=== PATIENT | female | born 1990 | race Caucasian/White ===

== ENCOUNTER → 2017-09-15 | Outpatient (CLI) | payer BC ==
--- NOTE | 2017-09-15 15:26 | CT ---
EXAMINATION TYPE: CT abdomen pelvis wo con DATE OF EXAM: 09/15/2017 HISTORY: Left flank pain x1 month per patient. Right upper quadrant and thoracic back pain per order. CT DLP: 303.5 mGycm. Automated Exposure Control for Dose Reduction was Utilized. TECHNIQUE: CT scan of the abdomen and pelvis is performed without oral or IV contrast. COMPARISON: NONE FINDINGS: Within the limitations of a non-contrast study, the following observations are made. LUNG BASES: No significant abnormality is appreciated. LIVER/GB: Somewhat contracted gallbladder is present. PANCREAS: No significant abnormality is seen. SPLEEN: No significant abnormality is seen. ADRENALS: No significant abnormality is seen. KIDNEYS: No. No stones or hydronephrosis is present bilaterally. BOWEL: Appendix is felt within normal limits from base of cecum in the right lower quadrant. GENITAL ORGANS: Metallic IUD is seen in anteverted uterus. Suspected tiny amount of free fluid pelvic cul-de-sac axial image 113, nonspecific. No definitive adnexal masses are seen. Both ovaries are wit hin normal limits in size near axial image 113 LYMPH NODES: No greater than 1cm abdominal or pelvic lymph nodes are appreciated. OSSEOUS STRUCTURES: No significant abnormality is seen. OTHER: No significant additional abnormality is seen. IMPRESSION: No renal stones or hydronephrosis is seen bilaterally. No suspicious acute finding on non contrast CT is identified to account for patient's symptoms.
== END ==
LOC: RADCTMAIN 14:56
PROVIDERS: ATTEND Family Medicine
DX: R10.12 Left upper quadrant pain (principal); M54.6 Pain in thoracic spine
CPT/HCPCS: 74176

== ENCOUNTER → 2018-12-10 | Outpatient (CLI) | payer BC ==
--- NOTE | 2018-12-10 09:48 | XR ---
EXAMINATION TYPE: XR finger LT DATE OF EXAM: 12/10/2018 CLINICAL HISTORY: pain First digit. TECHNIQUE: 3 views of the first digit are submitted. COMPARISON: None FINDINGS: No displaced fracture is seen with certainty. Joint spaces are well-preserved. Correlate for soft tissue injury. IMPRESSION: No acute displaced fracture or dislocation.
== END | disposition home or self-care (01) ==
LOC: RADXRMAIN 08:37
PROVIDERS: ATTEND Family Medicine
DX: S63.105D Unspecified dislocation of left thumb, subsequent encounter (principal)

== ENCOUNTER → 2020-06-23 | Outpatient (CLI) | payer BC ==
[2020-06-23 16:11] LABS: % Iron Saturation 16.67 (12.00-45.00)
[2020-06-23 16:20] LABS: Ferritin 47.7 ng/mL (10.0-291.0)
[2020-06-23 16:31] LABS: Hepatitis B Surface Antigen Non-Reactive (Non-Reactive); Hepatitis C IgG Antibody Non-Reactive (Non-Reactive)
== END | disposition home or self-care (01) ==
LOC: LABWHC1 10:01
PROVIDERS: ATTEND Family Medicine
DX: R79.89 Other specified abnormal findings of blood chemistry (principal)
CPT/HCPCS: 36415; 82728; 83540; 83550; 86803; 87340

== ENCOUNTER → 2020-09-22 | Outpatient (CLI) | payer BC ==
--- NOTE | 2020-09-22 08:07 | USB ---
EXAMINATION TYPE: US breast limited RT DATE OF EXAM: 09/22/2020 COMPARISON: Mammogram same date CLINICAL HISTORY: N63 Breast Lump. Findings: The right breast was scanned at 3:00 and in the retroareolar region. Right axillary tail was also sca nned with ultrasound. There is no sonographic correlate for the right breast palpable abnormality. Clinical follow-up is re commended. IMPRESSION: No sonographic correlate for right breast palpable abnormality. Clinical follow-up is recommended. Mammograms beginning at age 40 are recommended unless clinical factors indicate earlier imaging is ne cessary. BI-RADS 1, negative.
--- NOTE | 2020-09-22 10:16 | MM ---
Reason for exam: clinical finding. History: Patient is nulliparous. Took hormonal contraceptives beginning at age 15. Physical Findings: Nurse Summary: 2cm nodule in the right breast at 2 o'clock (nurse sylvia). MG 3D Diag Mammo W/Cad OLIVER Bilateral CC and MLO view(s) were taken. There are scattered fibroglandular densities. No mammographic correlate for right palpable, recommend ultrasound. These results were verbally communicated with the patient and result sheet given to the patient on 09/22/20. ASSESSMENT: Incomplete: need additional imaging evaluation, BI-RAD 0 RECOMMENDATION: Ultrasound of the right breast. WOODY
== END | disposition home or self-care (01) ==
LOC: RADMAMWWP 07:05
PROVIDERS: ATTEND Obstetrics & Gynecology
DX: N64.89 Other specified disorders of breast (principal); N63.10 Unspecified lump in the right breast, unspecified quadrant
CPT/HCPCS: 77062; 77066

== ENCOUNTER → 2020-12-01 | Outpatient (CLI) | payer BC ==
[2020-12-01 15:19] VITALS: BP 123/81; PULSE 71; RESP 16; TEMP 98.5
--- NOTE | 2020-12-01 16:05 | P.GSHP ---
History of Present Illness H&P Date: 12/01/20 Chief Complaint: mass right breast Sujey is a 30-year-old white female seen in consultation for Dr. Stubbs regarding a mass in her right breast. She noted this approximately 4 months ago. It has not changed in size. It is tender to palpation. It does not change with her menstrual cycles. [place] [address] which did not reveal any mammographic correlate. She then underwent an ultrasound of the right breast which likewise did not reveal any sonographic correlate. She has never had anything like this in the past. She has not had any breast biopsies. She has not had any recent trauma or infection of the breast. She has not had any surgery in the breast. Has not had any pregnancies. Caffeine:less than 1 cup/day nicotine: none chocolate: three days/week Family history: paternal grandfather:lung cancer no smoker Hormonal history: Menarche: 11 G0 regular periods BCP: copper IUD; 5 years BCP: used from 15 to 21 Surgical history: lasix eye surgery Medical history: Negative Social history: Nicotine: Negative Alcohol: Occasional Drugs: Negative - Constitutional Constitutional: Denies chills, Denies fever - EENT Eyes: denies blurred vision, denies pain Ears: deny: decreased hearing, tinnitus Ears, nose, mouth and throat: Denies headache, Denies sore throat - Breasts Breasts: bilateral: as per HPI - Cardiovascular Cardiovascular: Denies chest pain, Denies shortness of breath - Respiratory Respiratory: Denies cough, Denies 7 - Gastrointestinal Gastrointestinal: Denies abdominal pain, Denies diarrhea, Denies nausea, Denies vomiting - Genitourinary (Female) Genitourinary: Denies dysuria, Denies hematuria - Menstruation Menstruation: Reports period normal - Musculoskeletal Musculoskeletal: Denies myalgias - Integumentary Integumentary: Denies pruritus, Denies rash - Neurological Neurological: Denies numbness, Denies weakness - Psychiatric Psychiatric: Denies anxiety, Denies depression - Endocrine Endocrine: Denies fatigue, Denies weight change - Hematologic/Lymphatic Comment: none - Allergic/Immunologic Allergic/Immunologic: Reports seasonal allergies Past Medical History History of Any Multi-Drug Resistant Organisms: None Reported Smoking Status: Never smoker Medications and Allergies Home Medications Medication Instructions Recorded Confirmed Type Multivit with Calcium,Iron,Min 1 each PO DAILY 12/01/20 12/01/20 History [Women's Multivitamin] Allergies Allergy/AdvReac Type Severity Reaction Status Date / Time Sulfa (Sulfonamide AdvReac Rash/Hives Unverified 12/01/20 15:19 Antibiotics) Surgical - Exam Vital Signs Temp Pulse Resp BP Pulse Ox 98.5 F 71 16 123/81 97 12/01/20 15:13 12/01/20 15:13 12/01/20 15:13 12/01/20 15:13 12/01/20 15:13 BMI 26.2 - General no distress - Eyes normal ocular movement - ENT no hearing loss, no congestion - Neck no masses, trachea midline - Respiratory normal expansion, normal respiratory effort - Cardiovascular Rhythm: regular Heart Sounds: normal: S1, S2 - Abdomen Abdomen: soft, non tender, no guarding, no rigid, no rebound - Integumentary normal turgor - Neurologic no disoriented, no combative - Musculoskeletal normal gait, normal posture - Psychiatric oriented to time, oriented to person, oriented to place, speech is normal, memory intact Breast Exam: BRA: 38D inspection: Bilateral grade 1 ptosis Palpation: Right breast: Multiple positional exam fiber cystic changes, the 3 o'clock position there is approximately a 1 x 1 cm area of nodularity Right axilla: No adenopathy of concern Left breast: Positional exam fibrocystic changes no dominant masses or nodules of concern Left axilla: No adenopathy of concern Results Mammogram and ultrasound results reviewed Assessment and Plan Assessment: Impression: 1. Dense fibroglandular breast tissue 2. Small approximately 1 x 1 cm area of nodularity 3 o'clock position medial aspect of right breast Plan: 1. Core biopsy of palpable area right breast 2. Ultrasound follow-up regardless of results of core biopsy as this area is palpable Cc: Dr. Stubbs
== END ==
LOC: WWCWWP 14:51
PROVIDERS: ATTEND Surgery
DX: N63.10 Unspecified lump in the right breast, unspecified quadrant (principal); Z88.2 Allergy status to sulfonamides

== ENCOUNTER → 2020-12-21 | Outpatient (CLI) | payer BC ==
[2020-12-21 10:22] VITALS: BP 127/87; PULSE 91; RESP 16; TEMP 98.5
--- NOTE | 2020-12-21 10:27 | P.PCN ---
Date of Procedure: 12/21/20 Preoperative Diagnosis: Palpable mass right breast Postoperative Diagnosis: Same Procedure(s) Performed: Core biopsy right breast Anesthesia: local Surgeon: Rachelle Cortes Pathology: other (Right breast tissue) Condition: stable Disposition: same day Indications for Procedure: Palpable mass right breast Operative Findings: Fibrofatty breast tissue Description of Procedure: This is a 30-year-old white female who was noted to have an area of increased nodularity in the upper inner aspect of the right breast. Mammogram and ultrasound were negative. Secondary to the persistent nodularity core biopsy was recommended. The area of concern was prepped using Betadine. 1% lidocaine was used to anesthetize the area of concern. An 18-gauge Bard core biopsy needle was utilized to obtain 3 specimens. The skin was opened using a 15 blade. The needle was injected in 3 specimens were obtained. The patient tolerated the procedure in stable condition. The specimen was sent to pathology.
== END ==
LOC: WWCWWP 10:01
PROVIDERS: ATTEND Surgery
DX: N63.10 Unspecified lump in the right breast, unspecified quadrant (principal); Z88.2 Allergy status to sulfonamides
CPT/HCPCS: 88305

== ENCOUNTER → 2020-12-29 | Outpatient (CLI) | payer BC ==
[2020-12-29 12:21] VITALS: BP 131/87; PULSE 84; RESP 16; TEMP 98.4
--- NOTE | 2020-12-29 12:35 | P.PN ---
Progress Note - Text Progress Note Date: 12/29/20 Sujey is status post a right breast core biopsy on . Pathology revealed benign breast fibroadipose tissue with benign rare ductal structure and benign fragment of skin. The patient tolerated procedure without difficulty. The area of palpable nodularity is persistent but it is believed that this has been sampled and that radiographically did not reveal any lesions of concern. Examination: Right breast mild ecchymosis at biopsy site no evidence of infection Plan: Repeat right breast ultrasound in 6 months with physician exam at that time Patient will follow up sooner if any questions or concerns CC: Dr. Stubbs, Dr. Wallace
== END ==
LOC: WWCWWP 11:56
PROVIDERS: ATTEND Surgery
DX: N63.10 Unspecified lump in the right breast, unspecified quadrant (principal); Z88.2 Allergy status to sulfonamides

== ENCOUNTER → 2021-06-21 | Outpatient (CLI) | payer BC ==
--- NOTE | 2021-06-21 10:00 | USB ---
Reason for exam: clinical finding. History: Patient is nulliparous. Family history of breast cancer in paternal grandmother at age 40 and breast cancer in paternal aunt at age 30. Took hormonal contraceptives beginning at age 15. Indicated problem(s): pain in the right breast. Physical Findings: A clinical breast exam by your physician is recommended on an annual basis and results should be correlated with mammographic findings. US Breast RT Right complete breast ultrasound includes all four quadrants, the retroareolar region and axilla. Finding demonstrates a 0.9 x 1.0 x 0.6cm lymph node at the axilla. No cystic or solid lesion seen in breast. These results were verbally communicated with the patient and result sheet given to the patient on 06/21/21. ASSESSMENT: Benign, BI-RAD 2 RECOMMENDATION: Routine screening mammogram of both breasts at age 39. Manage patient on a clinical basis.
== END | disposition home or self-care (01) ==
LOC: RADUSWWP 08:20
PROVIDERS: ATTEND Surgery
DX: R92.8 Other abnormal and inconclusive findings on diagnostic imaging of breast (principal); Z80.3 Family history of malignant neoplasm of breast

== ENCOUNTER → 2021-06-28 | Outpatient (CLI) | payer BC ==
[2021-06-28 08:43] VITALS: BP 129/85; PULSE 76; RESP 17; TEMP 97.7
--- NOTE | 2021-06-28 09:34 | P.PN ---
Subjective Progress Note Date: 06/28/21 Principal diagnosis: fibrocystic breast changes Sujey is a 31-year-old white female seen in consultation for Dr. Stubbs regarding a mass in her right breast last year. She noted this approximately 4 months prior. It had not changed in size. It was tender to palpation. It did not change with her menstrual cycles. [place] [address] which did not reveal any mammographic correlate. She then underwent an ultrasound of the right breast which likewise did not reveal any sonographic correlate. She had never had anything like this in the past. An ultrasound core biopsy which was benign. She has not had any recent trauma or infection of the breast. She has not had any surgery in the breast. [place] [address] which was benign BIRADS 2. She continues to have some fullness in her right breast. Caffeine:less than 1 cup/day nicotine: none chocolate: stopped 3 weeks ago Family history: paternal grandfather:lung cancer no smoker Hormonal history: Menarche: 11 G0 regular periods BCP: copper IUD; 5 years BCP: used from 15 to Surgical history: lasix eye surgery Medical history: Negative Social history: Nicotine: Negative Alcohol: Occasional Drugs: Negative - Constitutional Constitutional: Denies chills, Denies fever - EENT Eyes: denies blurred vision, denies pain Ears: deny: decreased hearing, tinnitus Ears, nose, mouth and throat: Denies headache, Denies sore throat - Breasts Breasts: bilateral: as per HPI - Cardiovascular Cardiovascular: Denies chest pain, Denies shortness of breath - Respiratory Respiratory: Denies cough - Gastrointestinal Gastrointestinal: Denies abdominal pain, Denies diarrhea, Denies nausea, Denies vomiting - Genitourinary (Female) Genitourinary: Denies dysuria, Denies hematuria - Menstruation Menstruation: Reports period normal - Musculoskeletal Musculoskeletal: Denies myalgias - Integumentary Integumentary: Denies pruritus, Denies rash - Neurological Neurological: Denies numbness, Denies weakness - Psychiatric Psychiatric: Denies anxiety, Denies depression - Endocrine Endocrine: Denies fatigue, Denies weight change - Hematologic/Lymphatic Comment: none - Allergic/Immunologic Allergic/Immunologic: Reports seasonal allergies Objective - Vital Signs Vital signs: Vital Signs Temp 97.7 F 06/28/21 08:40 Pulse 76 06/28/21 08:40 Resp 17 06/28/21 08:40 BP 129/85 06/28/21 08:40 Pulse Ox 95 06/28/21 08:40 Intake & Output 06/27/21 06/28/21 06/28/21 18:59 06:59 18:59 Weight 72.575 kg - Exam BMI 28.3 - Constitutional General appearance: Present: cooperative - EENT Eyes: Present: EOMI ENT: Present: hearing grossly normal - Neck Neck: Present: normal ROM - Respiratory Respiratory: bilateral: CTA - Cardiovascular Rhythm: regular Heart sounds: normal: S1, S2 - Gastrointestinal General gastrointestinal: Present: soft - Integumentary Integumentary: Present: normal turgor - Musculoskeletal Musculoskeletal: Present: gait normal - Psychiatric Psychiatric: Present: A&O x's 3, appropriate affect, intact judgment & insight - Additional findings Additional findings: Breast Exam: BRA: 36D inspection: Bilateral grade 1/2 ptosis Palpation: Right breast: Multi-positional exam extremely dense breast tissue no discrete dominant masses or nodules of concern, fullness at the 4 o'clock position where prior area of fullness was noted but nothing discrete Right axilla: No adenopathy of concern Left breast: Multi-positional exam extremely dense breast tissue no discrete dominant masses or nodules of concern Left axilla: No adenopathy of concern Assessment and Plan Assessment: Impression: Fibrocystic breast changes Plan: Repeat physician exam in 6 months Patient will do monthly self breast exams if she notes anything of concern she will contact us Patient was not recommended for repeat mammogram until the age of 39 and has had a recent right breast ultrasound in which was benign BIRADS 2 CC: Dr. Khan
== END ==
LOC: WWCWWP 08:32
PROVIDERS: ATTEND Surgery
DX: N60.19 Diffuse cystic mastopathy of unspecified breast (principal); Z88.2 Allergy status to sulfonamides

== ENCOUNTER → 2022-01-04 | Outpatient (CLI) | payer BC ==
[2022-01-04 09:55] VITALS: BP 117/83; PULSE 84; RESP 16; TEMP 98
--- NOTE | 2022-01-04 10:27 | P.PN ---
Subjective Progress Note Date: 01/04/22 Principal diagnosis: fibrocystic breast changes fibrocystic breast changes Sujey is a 31-year-old white female seen in consultation for Dr. Stubbs regarding a mass in her right breast last year. She noted this approximately 4 months prior. It had not changed in size. It was tender to palpation. It did not change with her menstrual cycles. [place] [address] which did not reveal any mammographic correlate. She then underwent an ultrasound of the right breast which likewise did not reveal any sonographic correlate. She had never had anything like this in the past. An ultrasound core biopsy which was benign. She has not had any recent trauma or infection of the breast. She has not had any surgery in the breast. [place] [address] which was benign BIRADS 2. She continues to have some fullness in her right breast. [place] [address] revealed benign breast fibroadipose tissue with benign rare ductal structure this was negative for malignancy. The area that she felt of concern in her right breast in the past has not changed. She does not feel any other lumps masses or nodules of concern in either breast. Caffeine:less than 1 cup/day nicotine: none chocolate: stopped 3 weeks ago Family history: paternal grandfather:lung cancer no smoker Hormonal history: Menarche: 11 G0 regular periods BCP: copper IUD; 5 years BCP: used from 15 to 21 Surgical history: lasix eye surgery Medical history: Negative Social history: Nicotine: Negative Alcohol: Occasional Drugs: Negative - Constitutional Constitutional: Denies chills, Denies fever - EENT Eyes: denies blurred vision, denies pain Ears: deny: decreased hearing, tinnitus Ears, nose, mouth and throat: Denies headache, Denies sore throat - Breasts Breasts: bilateral: as per HPI - Cardiovascular Cardiovascular: Denies chest pain, Denies shortness of breath - Respiratory Respiratory: Denies cough - Gastrointestinal Gastrointestinal: Denies abdominal pain, Denies diarrhea, Denies nausea, Denies vomiting - Genitourinary (Female) Genitourinary: Denies dysuria, Denies hematuria - Menstruation Menstruation: Reports period normal - Musculoskeletal Musculoskeletal: Denies myalgias - Integumentary Integumentary: Denies pruritus, Denies rash - Neurological Neurological: Denies numbness, Denies weakness - Psychiatric Psychiatric: Denies anxiety, Denies depression - Endocrine Endocrine: Denies fatigue, Denies weight change - Hematologic/Lymphatic Comment: none - Allergic/Immunologic Allergic/Immunologic: Reports seasonal allergies Objective - Vital Signs Vital signs: Vital Signs Temp 98.0 F 01/04/22 09:53 Pulse 84 01/04/22 09:53 Resp 16 01/04/22 09:53 BP 117/83 01/04/22 09:53 Pulse Ox 98 01/04/22 09:53 FiO2 Intake & Output 01/03/22 01/04/22 01/04/22 18:59 06:59 18:59 Weight 74.843 kg - Constitutional General appearance: Present: cooperative - EENT Eyes: Present: EOMI ENT: Present: hearing grossly normal - Neck Neck: Present: normal ROM - Respiratory Respiratory: bilateral: CTA - Cardiovascular Rhythm: regular Heart sounds: normal: S1, S2 - Integumentary Integumentary: Present: normal turgor - Musculoskeletal Musculoskeletal: Present: gait normal - Psychiatric Psychiatric: Present: A&O x's 3, appropriate affect, intact judgment & insight - Additional findings Additional findings: Breast Exam: BRA: 36D inspection: Right breast slightly smaller than left breast, bilateral grade 1 ptosis Palpation: Right breast: 3 o'clock position approximately 1 cm area of nodularity which is more discrete on today's examination and surrounding tissue, most likely lobulated breast tissue, this is followed in a multi-positional exam no other dominant masses or nodules of concern Right axilla: No adenopathy of concern Left breast: Multi-positional exam fibrocystic changes no dominant masses or nodules of concern Left axilla: No adenopathy of concern Assessment and Plan Assessment: Impression: Fibrocystic breast changes More discrete nodularity at the 3 o'clock position of the right breast Plan: Ultrasound 3 o'clock position right breast follow-up after ultrasound CC: Dr. Khan
== END ==
LOC: WWCWWP 09:32
PROVIDERS: ATTEND Surgery
DX: R92.8 Other abnormal and inconclusive findings on diagnostic imaging of breast (principal); Z53.9 Procedure and treatment not carried out, unspecified reason

== ENCOUNTER → 2022-02-08 | Outpatient (CLI) | payer BC ==
--- NOTE | 2022-02-08 09:45 | USB ---
Patient History: Menarche at age 11. Patient has no children. Hormonal Contraceptives, starting at age 15. Paternal grandmother had breast cancer, age 40. Paternal aunt had breast cancer, age 30. Technique: Method: Targeted. Prior Study Comparison: 09/22/2020 Bilateral Diagnostic Mammogram, [facility]. Findings: The medial section of the breast of the right breast, the axilla of the right breast and the retroareolar of the right breast were scanned. Ultrasound imaging of the right whole breast, axilla and retroareolar regions demonstrate no evidence organizing fluid collection.. Overall Assessment: Negative, BI-RAD 1 Management: Screening Mammogram of both breasts at age 39. Clinical management for palpable abnormality. A clinical breast exam by your physician is recommended on an annual basis and results should be correlated with mammographic findings. This exam should not preclude additional follow-up of suspicious palpable abnormalities. Results were given to the patient verbally at the time of exam. Electronically signed and approved by: Jose Disla DO
== END | disposition home or self-care (01) ==
LOC: RADUSWWP 08:54
PROVIDERS: ATTEND Surgery
DX: N63.10 Unspecified lump in the right breast, unspecified quadrant (principal); Z80.3 Family history of malignant neoplasm of breast

== ENCOUNTER → 2022-02-15 | Outpatient (CLI) | payer BC ==
[2022-02-15 13:14] VITALS: BP 131/84; PULSE 96; RESP 16; TEMP 98.2
--- NOTE | 2022-02-15 13:28 | P.PN ---
Progress Note - Text Progress Note Date: 02/15/22 Sujey is a 31-year-old white female who was seen for evaluation in December 2021. At that time there was some concern that she had a palpable change in her right breast. An ultrasound was performed of this area on . The ultrasound did not show any suspicious lesions of concern. She also saw Dr. Stubbs last week and an esamination was done She felt it was fibrocystic disease. Breast Exam: Examination was limited to the right breast in the upper inner quadrant area. Again there is dense breast tissue with some nodularity but is most likely felt to be lobulated breast tissue. Impression: Fibrocystic breast changes with lobulated breast tissue at the 3 o'clock position of the left breast Plan: Right breast ultrasound in 6 months with physician exam at that time Cc: Dr. Stubbs, Dr. Khan
== END | disposition home or self-care (01) ==
LOC: WWCWWP 13:04
PROVIDERS: ATTEND Surgery
DX: Z53.9 Procedure and treatment not carried out, unspecified reason (principal)

== ENCOUNTER → 2022-02-25 | Outpatient (CLI) | payer BC ==
--- NOTE | 2022-02-26 10:43 | US ---
EXAMINATION TYPE: US thyroid st tissue head/neck DATE OF EXAM: 02/25/2022 COMPARISON: NONE CLINICAL HISTORY: 31-year-old female E04.9 NONTOXIC GOITER, UNSPECIFIED. Patient states the doctor fe lt a lump in neck TECHNIQUE: Multiple sonographic images of the thyroid gland are obtained. FINDINGS: GLAND SIZE: Right Lobe: 4.1 x 1.4 x 1.0 cm Overall Parenchyma: homogenous Left Lobe: 5.2 x 1.4 x 1.1 cm Overall Parenchyma: homogeneous Isthmus Thickness: 0.43 cm NODULES RIGHT: # of nodules measured on right: 1 1. 0.6 X 0.5 x 0.3 cm, lower mid, benign colloid cyst. LEFT: # of nodules measured on left: 0 ISTHMUS: # of nodules measured in the isthmus: 0 Lymph node visualized in area of concern on left side of neck measuring 2.3 x 1.0 x 0.9cm. Cortical t hickening up to 5.5 mm. IMPRESSION: 1. Borderline sized thyroid gland. Benign 6 mm colloid cyst on the right. Otherwise, no suspicious th yroid nodules. 2. Prominent, mildly thickened, but nonenlarged lymph node along the left side of the neck (1.0 cm sh ort axis) at the patient's palpable site. Likely reactive/post inflammatory. This can be followed cli nically. If any enlargement is noted, the area can be rescanned.
== END | disposition home or self-care (01) ==
LOC: RADUSWWP 17:00
PROVIDERS: ATTEND Family Medicine
DX: E04.9 Nontoxic goiter, unspecified (principal); E04.1 Nontoxic single thyroid nodule
CPT/HCPCS: 76536

== ENCOUNTER → 2022-08-15 | Outpatient (CLI) | payer BC ==
[2022-08-15 15:21] VITALS: BP 130/81; PULSE 87; RESP 18; TEMP 98.2
--- NOTE | 2022-08-15 15:32 | P.PN ---
Subjective Progress Note Date: 08/15/22 Principal diagnosis: fibrocystic breast disease fibrocystic breast changes Sujey is a 32-year-old white female seen in consultation for Dr. Stubbs regarding a mass in her right breast two years ago. She noted this approximately 4 months prior. It had not changed in size. It was tender to palpation. It did not change with her menstrual cycles. She underwent a bilateral mammogram on which did not reveal any mammographic correlate. She then underwent an ultrasound of the right breast which likewise did not reveal any sonographic correlate. She had never had anything like this in the past. On she underwent a core biopsy in the office of the palpable abnormality with ultrasound assistance. This was benign breast fibroadipose tissue with rare ductal structures. The area that she felt of concern in her right breast in the past has not forte ged. She does not feel any other lumps masses or nodules of concern in either breast. She had a right breast ultrasound on 5822 which was benign BIRADS 1 Caffeine:less than 1 cup/day nicotine: none chocolate: stopped 3 weeks ago Family history: paternal grandfather:lung cancer no smoker Hormonal history: Menarche: 11 G0 regular periods BCP: copper IUD; 5 years BCP: used from 15 to 21 Surgical history: lasix eye surgery Medical history: Negative Social history: Nicotine: Negative Alcohol: Occasional Drugs: Negative - Constitutional Constitutional: Denies chills, Denies fever - EENT Eyes: denies blurred vision, denies pain Ears: deny: decreased hearing, tinnitus Ears, nose, mouth and throat: Denies headache, Denies sore throat - Breasts Breasts: bilateral: as per HPI - Cardiovascular Cardiovascular: Denies chest pain, Denies shortness of breath - Respiratory Respiratory: Denies cough - Gastrointestinal Gastrointestinal: Denies abdominal pain, Denies diarrhea, Denies nausea, Denies vomiting - Genitourinary (Female) Genitourinary: Denies dysuria, Denies hematuria - Menstruation Menstruation: Reports period normal - Musculoskeletal Musculoskeletal: Denies myalgias - Integumentary Integumentary: Denies pruritus, Denies rash - Neurological Neurological: Denies numbness, Denies weakness - Psychiatric Psychiatric: Denies anxiety, Denies depression - Endocrine Endocrine: Denies fatigue, Denies weight change - Hematologic/Lymphatic Comment: none - Allergic/Immunologic Allergic/Immunologic: Reports seasonal allergies Objective - Constitutional General appearance: Present: cooperative - EENT Eyes: Present: EOMI ENT: Present: hearing grossly normal - Neck Neck: Present: normal ROM - Respiratory Respiratory: bilateral: CTA - Cardiovascular Rhythm: regular Heart sounds: normal: S1, S2 - Gastrointestinal General gastrointestinal: Present: soft - Integumentary Integumentary: Present: normal turgor - Musculoskeletal Musculoskeletal: Present: gait normal - Psychiatric Psychiatric: Present: A&O x's 3, appropriate affect, intact judgment & insight - Additional findings Additional findings: Breast Exam: BRA: 36D inspection: Right breast slightly smaller than left breast, bilateral grade 1 ptosis Palpation: Right breast: 3 o'clock position approximately 1 cm area of nodularity which is more discrete on today's examination and surrounding tissue, most likely lobulated breast tissue, this is followed in a multi-positional exam no other dominant masses or nodules of concern Right axilla: No adenopathy of concern Left breast: Multi-positional exam fibrocystic changes no dominant masses or nodules of concern Left axilla: No adenopathy of concern Assessment and Plan Assessment: Impression/Plan: Fibrocystic breast changes Recent ultrasound of the right breast 5823 benign BIRADS 1 There remains an area more discrete nodularity in the 3 o'clock position of the left breast, this has been biopsied, this was benign on biopsy and has been followed radiographically and on examination without change. The patient was given the option of resection in the operating room versus continued close surveillance. At this time the patient would prefer continued close surveillance. She will follow up in 6 months for physical examination, if anything changes she will follow up sooner We have discussed the fact that I cannot tell her that for pathology without resection, however from everything that we can ascertain this appears to be benign dense breast tissue. She understands and would like to forego surgical intervention at this time. CC: Dr. Khan
== END ==
LOC: WWCWWP 14:33
PROVIDERS: ATTEND Surgery
DX: N60.11 Diffuse cystic mastopathy of right breast (principal); Z88.2 Allergy status to sulfonamides

== ENCOUNTER → 2023-03-14 | Outpatient (CLI) | payer BC ==
--- NOTE | 2023-03-14 09:15 | P.PN ---
Subjective Progress Note Date: 03/14/23 fibrocystic breast changes Sujey is a 32-year-old white female seen in consultation for Dr. Enoc myles a mass in her right breast two years ago. She noted this approximately 4 months prior. It had not changed in size. It was tender to palpation. It did not change with her menstrual cycles[place] [address] which did not reveal any mammographic correlate. She then underwent an ultrasound of the right breast which likewise did not reveal any sonographic correlate. She had never had anything like this in the past. On she underwent a core biopsy in the office of the palpable abnormality with ultrasound assistance. This was benign breast fibroadipose tissue with rare ductal structures. The area that she felt of concern in her right breast in the past has not changed. She does not feel any other lumps masses or nodules of concern in eit her breast. She had a right breast ultrasound on 5822 which was benign BIRADS 1 12-8-23 She has persistent nodularity in the right breast at approximately 3:00 however this has not changed. She has not noted any new lumps masses or nodules of concern in either breast. Patient is planning to stop her control in the near future. We have discussed that the area of nodularity may become more difficult to evaluate if she becomes . She did have a core biopsy as well as an ultrasound of the area neither of which revealed anything of concern. We have again discussed the option of resection in the operating room but at this time we are going to follow her conservatively. Caffeine:less than 1 cup/day nicotine: none chocolate: stopped 3 weeks ago Family history: paternal grandfather:lung cancer no smoker Hormonal history: Menarche: 11 G0 regular periods BCP: copper IUD; 5 years BCP: used from 15 to 21 Surgical history: lasix eye surgery Medical history: Negative Social history: Nicotine: Negative Alcohol: Occasional Drugs: Negative - Constitutional Constitutional: Denies chills, Denies fever - EENT Eyes: denies blurred vision, denies pain Ears: deny: decreased hearing, tinnitus Ears, nose, mouth and throat: Denies headache, Denies sore throat - Breasts Breasts: bilateral: as per HPI - Cardiovascular Cardiovascular: Denies chest pain, Denies shortness of breath - Respiratory Respiratory: Denies cough - Gastrointestinal Gastrointestinal: Denies abdominal pain, Denies diarrhea, Denies nausea, Denies vomiting - Genitourinary (Female) Genitourinary: Denies dysuria, Denies hematuria - Menstruation Menstruation: Reports period normal - Musculoskeletal Musculoskeletal: Denies myalgias - Integumentary Integumentary: Denies pruritus, Denies rash - Neurological Neurological: Denies numbness, Denies weakness - Psychiatric Psychiatric: Denies anxiety, Denies depression - Endocrine Endocrine: Denies fatigue, Denies weight change - Hematologic/Lymphatic Comment: none - Allergic/Immunologic Allergic/Immunologic: Reports seasonal allergies Objective - Constitutional General appearance: Present: cooperative - EENT Eyes: Present: EOMI ENT: Present: hearing grossly normal - Neck Neck: Present: normal ROM - Respiratory Respiratory: bilateral: CTA - Cardiovascular Heart sounds: normal: S1, S2 - Integumentary Integumentary: Present: normal turgor - Musculoskeletal Musculoskeletal: Present: gait normal - Psychiatric Psychiatric: Present: A&O x's 3, appropriate affect, intact judgment & insight - Additional findings Additional findings: Breast Exam: BRA: 36D inspection: Right breast slightly smaller than left breast, bilateral grade 1 ptosis Palpation: Right breast: 3 o'clock position approximately 1 cm area of nodularity which is more discrete on today's examination and surrounding tissue, most likely lobulated breast tissue, this is followed in a multi-positional exam no other dominant masses or nodules of concern; this area is persistent without any change from her last examination Right axilla: No adenopathy of concern Left breast: Multi-positional exam fibrocystic changes no dominant masses or nodules of concern Left axilla: No adenopathy of concern Assessment and Plan Assessment: Impression/Plan: Fibrocystic breast changes Recent ultrasound of the right breast 5823 benign BIRADS 1 There remains an area more discrete nodularity in the 3 o'clock position of the right breast, this has been biopsied, this was benign on biopsy and has been fol lowed radiographically and on examination without change. The patient was again given the option of resection in the operating room versus continued close surveillance. At this time the patient would prefer continued close surveillance. She will follow up in 6 months for physical examination, if anything changes she will follow up sooner. We'll also do an ultrasound of the right breast in 6 months. The patient is going to consider getting in the near future and we have discussed that this may obscure make it more difficult to evaluate the area which we are feeling. She understands this and at the present time again wishes close surveillance. We have discussed the fact that I cannot tell her that for pathology without resection, however from everything that we can ascertain this appears to be benign dense breast tissue. She understands and would like to forego surgical intervention at this time. CC: Dr. Khan
[2023-03-14 09:23] VITALS: BP 126/88; PULSE 103; RESP 17; TEMP 98.2
== END ==
LOC: WWCWWP 08:59
PROVIDERS: ATTEND Surgery
DX: N63.12 Unspecified lump in the right breast, upper inner quadrant (principal); Z98.890 Other specified postprocedural states; Z88.2 Allergy status to sulfonamides; N63.15 Unspecified lump in the right breast, overlapping quadrants

== ENCOUNTER → 2023-09-08 | Outpatient (CLI) | payer BC ==
--- NOTE | 2023-09-08 08:46 | USB ---
Reason for Exam: Clinical finding. Patient History: Menarche at age 11. Patient has no children. Hormonal Contraceptives, starting at age 15. Paternal grandmother had breast cancer, age 40. Paternal aunt had breast cancer, age 30. Technique: Method: Targeted. Prior Study Comparison: 09/22/2020 Bilateral Diagnostic Mammogram, [facility]. 09/22/2020 Right Diagnostic Ultrasound, [facility]. 06/21/2021 Right Diagnostic Ultrasound, [facility]. 02/08/2022 Right US breast limited RT, [facility]. 08/12/2022 Right US breast limited RT, [facility]. Findings: The upper inner quadrant of the right breast, the lower inner quadrant of the right breast, the axilla of the right breast and the retroareolar of the right breast were scanned. Targeted ultrasound medial aspect of the right breast, 1:00 to 5:00 including scanning of the subareolar region and axilla. No solid or cystic lesion or axillary lymphadenopathy. Overall Assessment: Benign, BI-RAD 2 Management: Screening Mammogram of both breasts at age 39. Unless there is an indication to start sooner. Further clinical management of any suspicious palpable areas. Patient should continue monthly self breast exams. If any palpable change is appreciated, the patient can be rescanned Results were given to the patient verbally at the time of exam. Electronically signed and approved by: Denisa Grewal M.D. Radiologist
== END | disposition home or self-care (01) ==
LOC: RADUSWWP 08:21
PROVIDERS: ATTEND Surgery
DX: N63.10 Unspecified lump in the right breast, unspecified quadrant (principal); Z80.3 Family history of malignant neoplasm of breast

== ENCOUNTER → 2023-09-19 | Outpatient (CLI) | payer BC ==
[2023-09-19 14:17] VITALS: BP 129/86; PULSE 86; RESP 16; TEMP 98.4
--- NOTE | 2023-09-19 14:21 | P.PN ---
Subjective Progress Note Date: 09/19/23 Principal diagnosis: nodule right breast 03/14/23 fibrocystic breast changes Sujey is a 32-year-old white female seen in consultation for Dr. Stubbs regarding a mass in her right breast two years ago. She noted this approximately 4 months prior. It had not changed in size. It was tender to palpation. It did not change with her menstrual cycles. She underwent a bilateral mammogram on which did not reveal any mammographic correlate. She then underwent an ultrasound of the right breast which likewise did not reveal any sonographic correlate. She had never had anything like this in the past. On she underwent a core biopsy in the office of the palpable abnormality with ultrasound assistance. This was benign breast fibroadipose tissue with rare ductal structures. The area that she felt of concern in her right breast in the past has not ch anged. She does not feel any other lumps masses or nodules of concern in either breast. She had a right breast ultrasound on 5822 which was benign BIRADS 1 03-14-23 She has persistent nodularity in the right breast at approximately 3:00 however this has not changed. She has not noted any new lumps masses or nodules of concern in either breast. Patient is planning to stop her control in the near future. We have discussed that the area of nodularity may become more difficult to evaluate if she becomes . She did have a core biopsy as well as an ultrasound of the area neither of which revealed anything of concern. We have again discussed the option of resection in the operating room but at this time we are going to follow her conservatively. 09-19-23 right breast ultrasound on 09-08-23 BIRAD 2 She continues to feel nodularity in the right breast which has not changes, no other lumps masses or nodules of concern noted Caffeine:less than 1 cup/day nicotine: none chocolate: stopped 3 weeks ago Family history: paternal grandfather:lung cancer no smoker Hormonal history: Menarche: 11 G0 regular periods BCP: copper IUD; 5 years BCP: used from 15 to 21 Surgical history: lasix eye surgery Medical history: Negative Social history: Nicotine: Negative Alcohol: Occasional Drugs: Negative - Constitutional Constitutional: Denies chills, Denies fever - EENT Eyes: denies blurred vision, denies pain Ears: deny: decreased hearing, tinnitus Ears, nose, mouth and throat: Denies headache, Denies sore throat - Breasts Breasts: bilateral: as per HPI - Cardiovascular Cardiovascular: Denies chest pain, Denies shortness of breath - Respiratory Respiratory: Denies cough - Gastrointestinal Gastrointestinal: Denies abdominal pain, Denies diarrhea, Denies nausea, Denies vomiting - Genitourinary (Female) Genitourinary: Denies dysuria, Denies hematuria - Menstruation Menstruation: Reports period normal - Musculoskeletal Musculoskeletal: Denies myalgias - Integumentary Integumentary: Denies pruritus, Denies rash - Neurological Neurological: Denies numbness, Denies weakness - Psychiatric Psychiatric: Denies anxiety, Denies depression - Endocrine Endocrine: Denies fatigue, Denies weight change - Hematologic/Lymphatic Comment: none - Allergic/Immunologic Allergic/Immunologic: Reports seasonal allergies Objective - Vital Signs Vital signs: Intake & Output 09/18/23 09/19/23 09/19/23 18:59 06:59 18:59 Weight 72.575 kg - Constitutional General appearance: Present: cooperative - EENT Eyes: Present: EOMI ENT: Present: hearing grossly normal - Neck Neck: Present: normal ROM - Respiratory Respiratory: bilateral: CTA - Cardiovascular Heart sounds: normal: S1, S2 - Integumentary Integumentary: Present: normal turgor - Musculoskeletal Musculoskeletal: Present: gait normal - Psychiatric Psychiatric: Present: A&O x's 3, appropriate affect, intact judgment & insight - Additional findings Additional findings: Breast Exam: BRA: 36D inspection: Right breast slightly smaller than left breast, bilateral grade 1 ptosis Palpation: Right breast: 3 o'clock position approximately 1 cm area of nodularity which is more discrete on today's examination and surrounding tissue, most likely lobulated breast tissue, this is followed in a multi-positional exam no other dominant masses or nodules of concern; this area is persistent without any change from her last examination Right axilla: No adenopathy of concern Left breast: Multi-positional exam fibrocystic changes no dominant masses or nodules of concern Left axilla: No adenopathy of concern Assessment and Plan Assessment: Impression/Plan: Fibrocystic breast changes Recent ultrasound of the right breast [id number] BIRADS 2 There remains an area more discrete nodularity in the 3 o'clock position of the right breast, this has been biopsied, this was benign on biopsy and has been followed radiographically and on examination without change. The patient was again given the option of resection in the operating room versus continued close surveillance. At this time the patient would prefer continued close surveillance. She will follow up in one year for physical examination, if anything changes she will follow up sooner. We'll also do an ultrasound of the right breast at that time The patient is going to consider getting in the near future and we have discussed that this may obscure make it more difficult to evaluate the area which we are feeling. She understands this and at the present time again wishes close surveillance. We have discussed the fact that I cannot tell her that for pathology without resection, however from everything that we can ascertain this appears to be benign dense breast tissue. She understands and would like to forego surgical intervention at this time. CC: Dr. Khan
== END ==
LOC: WWCWWP 13:19
PROVIDERS: ATTEND Surgery
DX: R92.8 Other abnormal and inconclusive findings on diagnostic imaging of breast (principal); N60.12 Diffuse cystic mastopathy of left breast; N60.11 Diffuse cystic mastopathy of right breast; N63.15 Unspecified lump in the right breast, overlapping quadrants; Z88.2 Allergy status to sulfonamides

== ENCOUNTER → 2024-09-20 | Outpatient (CLI) | payer BC ==
--- NOTE | 2024-09-20 10:39 | USB ---
Reason for Exam: Clinical finding. Patient History: Menarche at age 11. Patient has no children. Hormonal Contraceptives, starting at age 15. Paternal grandmother had breast cancer, age 40. Paternal aunt had breast cancer, age 30. Risk Values: Luisa 5 year model risk: 0.3%. NCI Lifetime model risk: 11.3%. Technique: Method: Targeted. Prior Study Comparison: 09/22/2020 Bilateral Diagnostic Mammogram, [facility]. 02/08/2022 Right US breast limited RT, [facility]. 08/12/2022 Right US breast limited RT, [facility]. 09/08/2023 Right US breast limited RT, [facility]. Findings: The area of palpable concern of the right breast, the axilla of the right breast and the retroareolar of the right breast were scanned. Targeted ultrasound medial aspect of the right breast from 2:00 to 4:00 position including scanning of the subareolar region and axilla. No solid or cystic lesion or other discrete abnormality is seen at the 3:00 position, patient directed palpable site. No duct ectasia or axillary adenopathy. Overall Assessment: Benign, BI-RAD 2 Management: Screening Mammogram of both breasts at age 39. Unless there is an indication to start sooner. Further clinical management of any suspicious palpable areas. Patient should continue monthly self breast exams. If any changing or enlarging palpable area is detected, the patient can be rescanned. Results were given to the patient verbally at the time of exam. [facility], , 09/20/2024 10:36 AM. Electronically signed and approved by: Denisa Grewal M.D. Radiologist
== END | disposition home or self-care (01) ==
LOC: RADUSWWP 10:12
PROVIDERS: ATTEND Surgery
DX: N63.10 Unspecified lump in the right breast, unspecified quadrant (principal); Z80.3 Family history of malignant neoplasm of breast; Z92.0 Personal history of contraception